=== PATIENT | female | born 1995 | race Caucasian/White ===

== ENCOUNTER → 2024-09-01 | Outpatient (CLI) | payer MEDICAID, SELFPAY ==
--- NOTE | 2024-09-01 15:00 | XR_ITS ---
Examination: Pelvic ultrasound, transabdominal, complete Technique: Transabdominal ultrasound of the pelvis performed using grayscale imaging Date and time of exam: 09/29/2024 1525 hours INDICATIONS: Intermittent right pelvic pain 2 months, soft tissue left ovarian mass 12 x 12 x 13 mm on ultrasound July 16, 2023 FINDINGS: Uterus 9.1 cm, endometrial stripe 1.2 cm No uterine mass or intrauterine gestation Right ovary 3.2 cm arterial flow Left ovary 3.4 cm arterial flow solid mass within the left ovary 16 x 12 x 16 mm IMPRESSION: Solid mass within the left ovary 16 x 12 x 16 mm, differential would include ovarian tumor Recommend MRI pelvis follow-up pre and postcontrast
--- NOTE | 2024-09-01 15:00 | XR_ITS ---
Examination: Transvaginal ultrasound of the pelvis, complete Technique: Transvaginal sonographic images pelvis performed using wayne scale imaging Exam date and time: September 01, 2024 1533 hours INDICATIONS: Pelvic sonogram July 16, 2023 left ovarian mass 12 x 12 x 13 mm FINDINGS: Uterus 8.5 cm small benign cervical cyst Endometrial stripe 0.3 cm Right ovary and left ovary obscured by bowel gas IMPRESSION: Please see the transabdominal pelvic sonogram report
== END | disposition home or self-care (01) ==
LOC: CDIM 14:58
PROVIDERS: PCP Family Medicine; Referring Provider Obstetrics & Gynecology; Visit Provider Obstetrics & Gynecology
DX: R19.09 Other intra-abdominal and pelvic swelling, mass and lump (principal)
CPT/HCPCS: 76830; 76856

== ENCOUNTER → 2024-11-18 | Outpatient (CLI) | payer MEDICAID, SELFPAY ==
--- NOTE | 2024-11-18 15:43 | XR_ITS ---
Examination: Transvaginal ultrasound of the pelvis, complete Technique: Transvaginal sonographic images pelvis performed using wayne scale imaging Exam date and time: November 18, 2024 1620 hours INDICATIONS: Right-sided pelvic pain beginning one year ago FINDINGS: Uterus 7.8 cm endometrial stripe 0.5 cm No uterine mass Right ovary obscured by bowel gas Left ovary 5.1 cm arterial flow Left ovarian simple cyst 1.9 x 2.7 x 1.5 cm Left ovarian solid mass 15 x 14 x 12 mm IMPRESSION: Left ovarian solid mass 15 x 14 x 12 mm, differential would include endometrioma, early solid ovarian tumor Recommend 3-6 month follow-up transabdominal transvaginal pelvic sonography.
--- NOTE | 2024-11-18 15:43 | XR_ITS ---
Examination: Pelvic ultrasound, transabdominal, complete Technique: Transabdominal ultrasound of the pelvis performed using grayscale imaging Date and time of exam: November 18, 2024 at 1609 hours Comparison August 14, 2004 INDICATION: Pelvic pain beginning one year ago FINDINGS: Uterus 8.5 cm endometrial stripe 0.6 cm No uterine mass Right ovary 3.5 cm arterial flow Left ovary 5.9 cm arterial flow to 2.5 x 2.8 x 2.5 cm cyst Also left ovarian solid mass 13 x 15 x 16 mm IMPRESSION: Left ovarian simple cyst 2.5 x 2.8 x 2.5 cm Also a solid mass left ovary 13 x 15 x 16 mm, differential would include endometrioma, solid early ovarian tumor Recommend three-month follow-up transabdominal and transvaginal pelvic sonography
== END | disposition home or self-care (01) ==
PROVIDERS: PCP Obstetrics & Gynecology; Referring Provider Obstetrics & Gynecology; Visit Provider Obstetrics & Gynecology
DX: N83.292 Other ovarian cyst, left side (principal); N83.8 Other noninflammatory disorders of ovary, fallopian tube and broad ligament
CPT/HCPCS: 76830; 76856

== ENCOUNTER → 2025-01-11 | Outpatient (CLI) | payer MEDICAID, SELFPAY ==
--- NOTE | 2025-01-11 15:42 | XR_ITS ---
Examination: Lumbar spine, 5 views Technique: Lumbar spine AP, lateral, coned lateral lower lumbar spine, bilateral obliques 5 views Exam date and time: January 11, 2025, 1555 hours INDICATIONS: Low back pain radiating down the right leg beginning 2 years ago. FINDINGS: Adequate alignment lumbar vertebral bodies. No lumbar fracture. Mild to moderate disc narrowing L5-S1 IMPRESSION: Mild to moderate disc narrowing L5-S1
--- NOTE | 2025-01-11 15:42 | XR_ITS ---
Examination:Right hip AP, lateral, AP pelvis 3 views Technique: Hip AP lateral, AP pelvis, 3 views Exam date and time:January 11, 2025, 1555 hours INDICATIONS: Right hip pain beginning 2 years ago. FINDINGS: Minimal right hip osteoarthritis No right or left hip fracture or dislocation Bones of the pelvis intact IMPRESSION: Minimal right hip osteoarthritis.
== END | disposition home or self-care (01) ==
LOC: CDIM 15:34
PROVIDERS: PCP Family Medicine; Referring Provider Nurse Practitioner; Visit Provider Nurse Practitioner
DX: M48.07 Spinal stenosis, lumbosacral region (principal); M16.11 Unilateral primary osteoarthritis, right hip
CPT/HCPCS: 72110; 73502

== ENCOUNTER → 2025-04-10 | Outpatient (CLI) | payer MEDICAID, SELFPAY ==
[2025-04-10 13:43] LABS: HCG Qualitative,Urine Negative
--- NOTE | 2025-04-10 14:00 | XR_ITS ---
Examination: MRI abdomen with intravenous contrast. MRI abdomen without intravenous contrast. Date and time of exam: April 10, 2025, 1456 hrs. Indications: Right upper quadrant abdominal pain and tenderness, dysphagia hernia, 1.5 years, ultrasound transvaginal November 18, 2024 left ovarian solid mass Technique: Multiple axial, sagittal and coronal sections of the abdomen obtained. Transverse images, TR 6020, TE 107. T1 weighted transverse images, TR 582, TE 9.5. T2-weighted sagittal images, TR 4000, TE 105. T2-weighted sagittal images, TR 4000, TE 5. Coronal images, TR 4210, TE 107. Axial and coronal images are obtained post 20 cc intravenous injection, gadolinium. Findings: No focal liver lesions, hepatomegaly 22 cm Gallstones Gallbladder wall is not thickened Normal common hepatic common bile duct each 2 mm Spleen not enlarged Aorta normal size No ascites No adenopathy No hydronephrosis Postcontrast images demonstrate no abnormal liver or splenic lesions Impression: Hepatomegaly 22 cm Cholelithiasis,. No abdominal mass
--- NOTE | 2025-04-10 15:00 | XR_ITS ---
Examination: MRI pelvis with intravenous contrast. MRI pelvis without intravenous contrast. Date and time of exam: April 10, 2025, 1455 hrs. Indications: Right lower abdomen and pelvic pain, transvaginal pelvic sonogram November 18, 2024 left ovarian solid mass 16 x 14 x 12 mm Technique: Multiple axial, sagittal and coronal sections of the pelvis obtained. Transverse images, TR 6020, TE 107. T1 weighted transverse images, TR 582, TE 9.5. T2-weighted sagittal images, TR 4000, TE 105. T2-weighted sagittal images, TR 4000, TE 5. Coronal images, TR 4210, TE 107. Axial and coronal images are obtained post 20 cc intravenous injection, gadolinium. Findings: Anteverted uterus, 8 x 3.5 x 3.2 cm Endometrial stripe is not thickened No discrete uterine mass Right ovary 3.2 x 1.8 cm Left ovary 2.8 x 2.2 cm, solid mass in the left ovary, axial image 11 which does not show enhancement on the postcontrast images No free fluid in the pelvis Impression: Nonenhancing 15 x 13 mm left ovarian solid mass, differential would include endometrioma, early left ovarian tumor, recommend repeat pelvic sonography in 3 months
== END | disposition home or self-care (01) ==
PROVIDERS: PCP Nurse Practitioner; Referring Provider Nurse Practitioner; Visit Provider Nurse Practitioner
DX: N83.8 Other noninflammatory disorders of ovary, fallopian tube and broad ligament (principal); R16.0 Hepatomegaly, not elsewhere classified; K80.20 Calculus of gallbladder without cholecystitis without obstruction; Z32.00 Encounter for pregnancy test, result unknown
CPT/HCPCS: 72197; 74183; 81025; A9577